=== PATIENT | female | born 1995 | race African-American/Black ===

== ENCOUNTER 2023-02-03 14:24 | Observation (INO) | payer MEDICAID ==
[~2023-02-03] VITALS: Ht 170.2 cm; Wt 61.2 kg
[2023-02-03 17:21] LABS: CLARITY URINE CLEAR (CLEAR); COLOR URINE YELLOW (YELLOW); KETONES URINE NEGATIVE (NEGATIVE); LEUKOCYTE ESTERASE URINE TRACE (NEGATIVE); NITRITE URINE NEGATIVE (NEGATIVE); OCCULT BLOOD URINE NEGATIVE (NEGATIVE); PH URINE 6.5 (4.5-8.0); PROTEIN URINE TRACE (NEGATIVE); SPECIFIC GRAVITY URINE 1.027 (1.005-1.030)
[2023-02-04] MEDS ORDERED: PNV1TABL76 PO (01:20)
== END 2023-02-04 15:00 | disposition home health service (06) ==
LOC: 8 EST A/PP 14:24
PROVIDERS: ADMIT Obstetrics & Gynecology; ATTEND Obstetrics & Gynecology
DX: O42.912 Preterm premature rupture of membranes, unspecified as to length of time between rupture and onset of labor, second trimester (principal); O99.891 Other specified diseases and conditions complicating pregnancy; M54.9 Dorsalgia, unspecified; O62.9 Abnormality of forces of labor, unspecified; Z3A.21 21 weeks gestation of pregnancy
CPT/HCPCS: 59025; 76805; 81003; 99281; G0378

== ENCOUNTER 2023-02-03 21:20 | Observation (INO) | payer MEDICAID ==
[~2023-02-03] VITALS: Ht 167.6 cm; Wt 61.2 kg
[2023-02-04] MEDS ORDERED: PNV1TABL76 PO (01:20)
== END 2023-02-04 15:00 | disposition home or self-care (01) ==
LOC: 8 EST LDRP 21:20
PROVIDERS: ADMIT Obstetrics & Gynecology; ATTEND Obstetrics & Gynecology
DX: O42.912 Preterm premature rupture of membranes, unspecified as to length of time between rupture and onset of labor, second trimester (principal); Z3A.20 20 weeks gestation of pregnancy
CPT/HCPCS: 59025; 76805; G0378; 99281